=== PATIENT | female | born 1990 | race African-American/Black ===

== ENCOUNTER 2019-01-20 14:41 | Emergency (ER) | payer OTHER ==
[~2019-01-20] VITALS: Ht 170.2 cm; Wt 78.0 kg
[2019-01-20 14:44] VITALS: Ht 170.2 cm; Wt 78.0 kg
[2019-01-20 16:57] VITALS: BP 133/99
== END 2019-01-20 16:57 | disposition home or self-care (01) ==
LOC: ED 14:41
DX: T39.315A Adverse effect of propionic acid derivatives, initial encounter (principal); Y92.89 Other specified places as the place of occurrence of the external cause; J45.909 Unspecified asthma, uncomplicated; Z86.2 Personal history of diseases of the blood and blood-forming organs and certain disorders involving the immune mechanism; Z91.012 Allergy to eggs; Z91.018 Allergy to other foods; Z88.8 Allergy status to other drugs, medicaments and biological substances
CPT/HCPCS: J1200; J7512

== ENCOUNTER 2019-08-23 18:32 | Emergency (ER) | payer OTHER ==
[~2019-08-23] VITALS: Ht 170.2 cm; Wt 78.9 kg
[2019-08-23 18:39] VITALS: Ht 170.2 cm; Wt 78.9 kg
[2019-08-23 20:53] LABS: PLATELET COUNT 187 x10^3mcL (130-400)
[2019-08-23 20:58] LABS: CARBON DIOXIDE 25.9 mmol/L (21-32); CHLORIDE SERUM 103 mmol/L (98-107); CREATININE SERUM 0.7 mg/dL (0.6-1.0); GFR1 > 60 mL/min; GLUCOSE SERUM 74 mg/dL (74-106); SODIUM SERUM 139 mmol/L (136-145)
[2019-08-23 20:59] LABS: RED CELL DISTRIBUTION WIDTH 14.6 % (11.5-14.5)
[2019-08-23 21:03] LABS: ALBUMIN 4.3 g/dL (3.4-5.0); ALKALINE PHOSPHATASE 53 U/L (46-116); ALT/SGPT 17 U/L (14-59); AST/SGOT 10 U/L (15-37); BILIRUBIN TOTAL 0.4 mg/dL (0.20-1.00)
[2019-08-23 21:04] LABS: TOTAL PROTEIN, SERUM 8.4 g/dL (6.4-8.2)
[2019-08-23 21:11] LABS: BAND NEUTROPHIL 0 % (0-10); BASOPHIL 0 % (0-2); MONOCYTE 12 % (0-7); SEGMENTED NEUTROPHILS 39 % (37-75)
[2019-08-23 21:12] LABS: rbc morphology (normal/abnorm) NORMAL (NORMAL)
[2019-08-23 22:12] VITALS: BP 143/94
== END 2019-08-23 22:12 | disposition home or self-care (01) ==
LOC: ED 18:32
PROVIDERS: Emergency Medicine
DX: R07.89 Other chest pain (principal); B34.9 Viral infection, unspecified; D72.819 Decreased white blood cell count, unspecified; N63.0 Unspecified lump in unspecified breast; N63.20 Unspecified lump in the left breast, unspecified quadrant; B36.0 Pityriasis versicolor; K21.9 Gastro-esophageal reflux disease without esophagitis; J45.909 Unspecified asthma, uncomplicated; Z86.2 Personal history of diseases of the blood and blood-forming organs and certain disorders involving the immune mechanism
CPT/HCPCS: 36415

== ENCOUNTER 2020-07-18 06:42 | Emergency (ER) | payer OTHER ==
[~2020-07-18] VITALS: Ht 170.2 cm; Wt 87.8 kg
[2020-07-18 06:43] VITALS: Ht 170.2 cm; Wt 87.8 kg
[2020-07-18 07:52] VITALS: BP 119/80
== END 2020-07-18 07:49 | disposition home or self-care (01) ==
LOC: ED 06:42
DX: J45.909 Unspecified asthma, uncomplicated (principal); K21.9 Gastro-esophageal reflux disease without esophagitis; Z91.010 Allergy to peanuts; Z91.012 Allergy to eggs; Z88.6 Allergy status to analgesic agent
CPT/HCPCS: 36600

== ENCOUNTER 2020-10-08 09:09 | Emergency (ER) | payer OTHER ==
[~2020-10-08] VITALS: Ht 170.2 cm; Wt 88.9 kg
[2020-10-08 09:16] VITALS: Ht 170.2 cm; Wt 88.9 kg
[2020-10-08 11:33] VITALS: BP 137/86
== END 2020-10-08 11:33 | disposition home or self-care (01) ==
LOC: ED 09:09
DX: R07.89 Other chest pain (principal); J45.909 Unspecified asthma, uncomplicated; K21.9 Gastro-esophageal reflux disease without esophagitis; Z91.018 Allergy to other foods; Z91.012 Allergy to eggs; Z88.6 Allergy status to analgesic agent